=== PATIENT | female | born 1965 | race Caucasian/White ===

== ENCOUNTER → 2023-08-13 07:46 | Outpatient (REF) | payer OTHER, SELFPAY | LOC: RAD 07:46 | PROVIDERS: ATTENDING PHYSICIAN Internal Medicine Critical Care Medicine; FAMILY PHYSICIAN Family Medicine | DX: R93.89 Abnormal findings on diagnostic imaging of other specified body structures (principal); J96.01 Acute respiratory failure with hypoxia | CPT/HCPCS: 71250 ==

== ENCOUNTER 2024-01-31 13:42 | Emergency (ER) | payer OTHER, SELFPAY ==
[2024-01-31 13:49] VITALS: BP 131/97
[2024-01-31 14:19] VITALS: BMI 40.7
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
== END 2024-01-31 14:58 | disposition home or self-care (01) ==
LOC: EMR 13:42
PROVIDERS: EMERGENCY PHYSICIAN Emergency Medicine; FAMILY PHYSICIAN Family Medicine
DX: S89.92XA Unspecified injury of left lower leg, initial encounter (principal); M25.571 Pain in right ankle and joints of right foot; W19.XXXA Unspecified fall, initial encounter; I10 Essential (primary) hypertension; E11.9 Type 2 diabetes mellitus without complications
CPT/HCPCS: 99283; 73564; 73630

== ENCOUNTER → 2024-02-24 17:33 | Outpatient (REF) | payer OTHER, SELFPAY | LOC: PAVMRI 17:33 | PROVIDERS: ATTENDING PHYSICIAN Physical Medicine & Rehabilitation; FAMILY PHYSICIAN Family Medicine | DX: M75.42 Impingement syndrome of left shoulder (principal) | CPT/HCPCS: 73221 ==

== ENCOUNTER 2024-04-09 09:26 | Emergency (ER) | payer OTHER, SELFPAY ==
[2024-04-09 09:27] VITALS: BP 136/76
[2024-04-09] MEDS: TYLENOL 650 MG PO (10:30)
--- NOTE | 2024-04-09 11:33 | ED.GENMED ---
History of Present Illness
General
Chief Complaint: Musculo-Skeletal Complaint
Source: patient and family ( at bedside)
Exam Limitations: none
Time Seen by Provider: 04/09/24 09:37
Nursing documentation reviewed up to this point in time: agreed with
History of Present Illness
History of Present Illness:
59-year-old female presenting with right ankle injury. Patient states she tripped walking up a curb yesterday evening hyperextending her right ankle. She did not hit her head or sustain any other injuries during the fall. Last night�she did apply
ice and elevate her right ankle. However�this morning pain persisted and she was been unable to weight-bear due to pain. Pain is localized in her right ankle and right foot.
Patient does have a colonoscopy scheduled for Friday and has been told to avoid NSAIDs.
Past History
Past History
ED Past Medical History: HTN and NIDDM
ED Past Surgical History: , Gynecological, Orthopedic and Tonsilectomy
Social History
Tobacco: Non-smoker
Alcohol: None
Personal:
Living: with family
Employment: Not employed
Review of Systems
Review of Systems
Allergies reviewed?: Yes
All Other Systems: ROS reviewed and negative except as documented in HPI and ROS
Phy Exam
Physical Exam
Physical Exam:
Vitals: Patient's vital signs are stable. Afebrile
General: Patient is well appearing, no acute distress
Skin: Warm and dry, no rashes or lesions
Head: Normocephalic, atraumatic
Throat: Protecting airway
Neck: Normal ROM, no cervical spine tenderness
Cardiac: Regular rate
Pulm: No apparent respiratory distress
Abdomen: Nondistended
Extremities: Mild edema to dorsal foot with somewhat diffuse tenderness of right ankle surrounding lateral/medial malleoli. Tenderness noted just anterior/posterior to right lateral malleoli and dorsal foot. No tenderness of midfoot. No
tenderness at base of fifth metatarsal or calcaneus. No tenderness at head of right fibula. Right Achilles intact. Right DP pulses palpable. Sensation fully intact. Right knee atraumatic and nontender with full range of motion.
Neuro: Grossly intact
Psychiatric: Normal affect.
Course
Orders/Labs/Results
Orders:
Orders
04/09/24 09:34
Ankle, Right 3 view CR [CR Ankle - Right Min 3 Views *] Urgent
Comment:
Reason For Exam: pain after falling yesterday
CR Foot - Right Min 3 Views Urgent
Comment:
Reason For Exam: tripped and twisted foot and ankle yesterday
04/09/24 10:15
Acetaminophen [Tylenol] 650 mg PO NOW STA
04/09/24 10:38
Air Splint Right-Treatment ONCE
Vital Signs
Initial and Last Documented VS:
Initial Vital Signs
Temp Pulse BP Pulse Ox
98.0 F 55 136/76 99
04/09/24 09:27 04/09/24 09:27 04/09/24 09:27 04/09/24 09:27
Last Documented Vital Signs
Temp Pulse BP Pulse Ox
98.0 F 55 136/76 99
04/09/24 09:27 04/09/24 09:27 04/09/24 09:27 04/09/24 09:27
MDM/Problems Addressed
Differential Diagnosis Includes:
Not limited to: Ankle sprain, ankle fracture, foot, foot fracture, Achilles tendon injury, etc.
MDM/Problems Addressed:
59-year-old female presenting with mechanical right ankle injury. Unable to weight-bear due to pain. Patient does have history of ankle fracture with surgical screws placed many years ago. Denies any other associated injuries. Vital stable.
Exam as above. X-ray of right foot and ankle obtained without any acute fracture or dislocation. Suspect likely ankle sprain. There was a possible mention of hardware loosening noted on x-ray for which patient will follow-up with her orthopedic
surgeon, Dr. Herbert. Offered walking boot versus Aircast with patient. Patient prefers Aircast. Patient declines crutches and states will use a walker/wheelchair at home that she owns. Discussed RICE, follow-up with Ortho. Patient comfortable
with plan. All questions answered. Case discussed with attending physician.
Chronic conditions affecting care:
N/A
Acute Exacerbation and/or Progression of Chronic Illness:
N/A
*Radiology
Radiology exam reviewed: preliminary read by ED provider and radiology read reviewed (No acute fracture)
*Pulse Oximetry
Patient hypoxic: no
*EKG
Interpreted by ED Provider?: NA
*Psychology Department Chair Interpretation
Rate: Psychology Department Chair- N/A
*Critical Care Note
Total Time (30-74mins, 75-104mins- exclusive of procedures): Not Applicable
ED Attending Note
-
Portions of this chart may have been created with voice recognition software.� Occasional wrong word or��sound alike� substitutions may have occurred due to the inherent limitations of voice recognition software.
Discharge Plan
Departure
Patient Disposition: Home (Routine Discharge)
Date of Disposition: 04/09/24
Time of Disposition: 10:38
Patient with high blood pressure during this ER visit?: No
Discharge Problem:
Injury of ankle, right
Instructions: Ankle Sprain ED
Prescriptions:
No Action
dextromethorphan-guaifenesin 10-100 mg/5 mL Syrup
30 ml PO BIDPRN PRN (Reason: cough)
acetaminophen [Tylenol Extra Strength] 500 mg Tablet
1,000 mg PO DAILYPRN PRN (Reason: mild pain)
hydrocortisone acetate 25 mg Suppository
25 mg [place] HS Qty: 24 0RF
metformin 500 mg Tablet
500 mg PO BID@0800,1700 Qty: 120 0RF
Jardiance 25 mg Tablet
25 mg PO DAILY Qty: 30 0RF
polyethylene glycol 3350 [HealthyLax] 17 gram Powder In Packet
17 g PO DAILY Qty: 0 0RF
guaifenesin 600 mg Tablet Extended Release 12hr
600 mg PO Q12 Qty: 0 0RF
amlodipine 5 mg Tablet
5 mg PO DAILY Qty: 60 0RF
prednisone 10 mg tablet
10 mg PO DIRECTED Qty: 30 0RF
Rx Instructions:
40 mg X3days,[id number]
insulin glargine [Lantus Solostar U-100 Insulin] 100 unit/mL (3 mL) insulin pen
15 unit SC QPM Qty: 15 0RF
(DME) pen needle, diabetic [Microdot Insulin Pen Needle] 31 gauge x 1/4' needle
See Rx Instructions .Route Qty: 100 0RF
Rx Instructions:
As directed
(DME) Contour Next Test Strips Strip
Qty: 200 0RF
Rx Instructions:
Test before each meal and HS As Directed
E11.65
(DME) lancets [Color Lancets] 21 gauge Misc
Qty: 200 0RF
Rx Instructions:
Test before each meal and HS As Directed
E11.65
insulin lispro [Humalog KwikPen Insulin] 100 unit/mL insulin pen
6 unit SC AC Qty: 15 0RF
Referrals:
Amanda Rosales MD [Family Provider] -
Chiara Herbert I., DO [Active] - Call in 1-3 days for appt
Activity Restrictions/Additional Instructions:
RETURN TO THE EMERGENCY DEPARTMENT WITH ANY NUMBNESS/TINGLING IN RIGHT LEG/FOOT, INTRACTABLE PAIN, SIGNIFICANT SWELLING OR BRUISING OF RIGHT ANKLE/FOOT, OR ANY OTHER CONCERNS
-As discussed�your imaging did not show any evidence of acute fracture today. It is possible that you have a foot/ankle sprain. You should continue to rest, ice, elevate right foot/ankle as often as possible. You can take Tylenol as needed for
pain.
-You should remain nonweightbearing for the next few days until tolerated.
-As discussed�there may be some slight loosening of your hardware found on the x-ray today. You should follow-up with orthopedics for further evaluation/management.
Monitor your symptoms closely and return to the emergency department with any acute worsening/new symptoms
Interventions
Interventions:
*Risk Screen - Suicide Last Done: 04/09/24 09:42
*General Assessment Last Done: 04/09/24 09:57
*Neglect/Abuse Screening Last Done: 04/09/24 09:42
ED- Fall Risk Assessment Last Done: 04/09/24 11:00
*ED COVID-19 Vaccine History Last Done: 04/09/24 09:57
*Nursing Disposition Last Done: 04/09/24 11:00
ED-Musculoskeletal Assessment Last Done: 04/09/24 09:57
Discharge Date and Time
Discharge Date/Time: 04/09/24 11:00
Print Language: CAMEROONIAN
== END 2024-04-09 11:00 | disposition home or self-care (01) ==
LOC: EMR 09:26
PROVIDERS: EMERGENCY PHYSICIAN Emergency Medicine; FAMILY PHYSICIAN Family Medicine
DX: S99.911A Unspecified injury of right ankle, initial encounter (principal); R60.0 Localized edema; W10.1XXA Fall (on)(from) sidewalk curb, initial encounter; I10 Essential (primary) hypertension; E11.9 Type 2 diabetes mellitus without complications; Z88.0 Allergy status to penicillin
CPT/HCPCS: 99283; 29515; 73610; 73630

== ENCOUNTER 2024-04-12 06:31 | Day surgery (SDC) | payer OTHER, SELFPAY ==
[2024-04-12 08:50] VITALS: BMI 41.6
[2024-04-12 08:55] VITALS: BP 132/75
[2024-04-12 09:04] LABS: Glucose - Point of Care 101 mg/dl (70-99)
[2024-04-12 11:01] VITALS: BP 127/74
[2024-04-12 11:08] LABS: Glucose - Point of Care 99 mg/dl (70-99)
[2024-04-12 11:16] VITALS: BP 112/75
[2024-04-12 11:21] VITALS: BP 120/70
== END 2024-04-12 11:31 | disposition home or self-care (01) ==
LOC: SDS 06:31
PROVIDERS: ATTENDING PHYSICIAN Internal Medicine Gastroenterology
DX: Z12.11 Encounter for screening for malignant neoplasm of colon (principal); D12.2 Benign neoplasm of ascending colon; D12.3 Benign neoplasm of transverse colon; K57.30 Diverticulosis of large intestine without perforation or abscess without bleeding
CPT/HCPCS: 45385; 45380; 45381; 88305; 82962

== ENCOUNTER → 2024-04-15 08:50 | Outpatient (REF) | payer OTHER, SELFPAY | LOC: RAD 08:50 | PROVIDERS: FAMILY PHYSICIAN Family Medicine | DX: M75.101 Unspecified rotator cuff tear or rupture of right shoulder, not specified as traumatic (principal) | CPT/HCPCS: 73030 ==

== ENCOUNTER → 2024-05-27 11:15 | Outpatient (REF) | payer OTHER, SELFPAY | LOC: RAD 11:15 | PROVIDERS: ATTENDING PHYSICIAN Internal Medicine; FAMILY PHYSICIAN Family Medicine | DX: M54.59 Other low back pain (principal) | CPT/HCPCS: 72110 ==

== ENCOUNTER 2024-06-26 09:19 | Emergency (ER) | payer BC, SELFPAY ==
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
--- NOTE | 2024-06-26 11:34 | ED.GENMED ---
History of Present Illness
General
Chief Complaint: Back Pain
Source: patient
Exam Limitations: none
Time Seen by Provider: 06/26/24 11:34
Nursing documentation reviewed up to this point in time: agreed with
History of Present Illness
History of Present Illness:
Patient is a 59 old female who presents to the ER complaining of left lower back/buttock pain . She reports she woke up with pain yesterday however later in the afternoon it got progressively worse she denies any injury. She denies any loss of
bowel bladder denies any radiation. She reports it is worse with movement feels better lying on her left side. She only took a Tylenol at home without relief. Denies any bowel or bladder incontinence or lower weakness.
Past History
Past History
ED Past Medical History: HTN and NIDDM
ED Past Surgical History: , Gynecological, Orthopedic and Tonsilectomy
Social History
Tobacco: Non-smoker
Alcohol: None
Personal:
Living: with family
Employment: Not employed
Review of Systems
Review of Systems
Allergies reviewed?: Yes
All Other Systems: ROS reviewed and negative except as documented in HPI and ROS
Constitutional: Reports no symptoms; Denies fever, fatigue or chills
Respiratory: Reports no symptoms
Cardiac: Reports no symptoms
ABD/GI: Reports no symptoms
: Reports no symptoms; Denies incontinence
Musculoskeletal: Reports back pain
Skin: Reports no symptoms
Neurological: Reports no symptoms
Psychiatric: Reports no symptoms
Phy Exam
General Physical Exam
General Presentation: no apparent distress
General age: appears stated age
General Skin: warm and dry
General Habitus: normal
General Mental: alert
General Hydration: appears well hydrated
Neurological Exam
Neurological Exam: alert, oriented x3 and other (neg straight leg raise b/l ; nml dorsiflexion plantarflexion)
Musculoskeletal Exam
Musculoskeletal Exam: other (Normal inspection to backend python developer to left lower lateral lumbar back/buttocks no CVA tenderness full strength lower extremities strong distal pulses bilateral lower extremities)
Skin Exam
Skin Exam: normal color and warm/dry
Psychiatric Exam
Psychiatric Exam: normal mood/affect
Course
Orders/Labs/Results
Orders:
Orders
06/26/24 11:35
Vital Signs- Treatment ONCE
Frequency: Once
06/26/24 11:42
Acetaminophen [Tylenol] 1,000 mg PO NOW STA
Ketorolac [Toradol] 30 mg IM NOW STA
Lidocaine [Lidocaine 4% Patch] 1 patch TOPICAL NOW STA
Apply Lidocaine patch(s) to:: left lower back/buttock
diazePAM [Valium Injection] 5 mg IM NOW STA
Lumbar Spine Complete, 4 View [CR Lumbar Spine Comp Min 4 Vw*] Urgent
Comment:
Reason For Exam: left lower back/buttock pain
Vital Signs
Initial and Last Documented VS:
Initial Vital Signs
Temp Pulse Resp Pulse Ox
98.4 F 84 16 98
06/26/24 09:24 06/26/24 09:24 06/26/24 09:24 06/26/24 09:24
Last Documented Vital Signs
Temp Pulse Resp BP Pulse Ox
98.4 F 84 16 118/73 98
06/26/24 09:24 06/26/24 09:24 06/26/24 09:24 06/26/24 14:01 06/26/24 09:24
MDM/Problems Addressed
Differential Diagnosis Includes:
not limited to: muscle spasm/back pain
MDM/Problems Addressed:
Symptoms are consistent muscular back/buttock pain. Patient no acute distress stable for discharge home. Will DC with Flexeril, [id number] ibuprofen lidocaine patch and Tylenol as needed close outpatient PCP patient with no neurological
deficits or complaints
*Radiology
Radiology exam reviewed: radiology read reviewed
*Pulse Oximetry
Patient hypoxic: no
*Critical Care Note
Total Time (30-74mins, 75-104mins- exclusive of procedures): Not Applicable
ED Attending Note
-
Portions of this chart may have been created with voice recognition software.� Occasional wrong word or��sound alike� substitutions may have occurred due to the inherent limitations of voice recognition software.
Discharge Plan
Departure
Patient Disposition: Home (Routine Discharge)
Date of Disposition: 06/26/24
Time of Disposition: 13:39
Patient with high blood pressure during this ER visit?: No
Discharge Problem:
Low back pain
Instructions: Low Back Pain (DC)
Prescriptions:
New
cyclobenzaprine 10 mg tablet
10 mg PO TID PRN (Reason: pain ) Qty: 10 0RF
lidocaine 5 % adhesive patch,medicated
1 patch topical DAILY Qty: 15 0RF
Rx Instructions:
remove after 12 hrs
No Action
acetaminophen [Tylenol Extra Strength] 500 mg Tablet
1,000 mg PO DAILYPRN PRN (Reason: mild pain)
metformin 500 mg Tablet
500 mg PO BID@0800,1700 Qty: 120 0RF
Jardiance 25 mg Tablet
25 mg PO DAILY Qty: 30 0RF
amlodipine 5 mg Tablet
5 mg PO DAILY Qty: 60 0RF
insulin glargine [Lantus Solostar U-100 Insulin] 100 unit/mL (3 mL) insulin pen
15 unit SC QPM Qty: 15 0RF
(DME) pen needle, diabetic [Microdot Insulin Pen Needle] 31 gauge x 1/4' needle
See Rx Instructions .Route Qty: 100 0RF
Rx Instructions:
As directed
(DME) Contour Next Test Strips Strip
Qty: 200 0RF
Rx Instructions:
Test before each meal and HS As Directed
E11.65
(DME) lancets [Color Lancets] 21 gauge Misc
Qty: 200 0RF
Rx Instructions:
Test before each meal and HS As Directed
E11.65
simethicone 125 mg Tablet,Chewable
250 mg PO DIRECTED
Sutab 1.479-0.188- 0.225 gram Tablet
PO DIRECTED
Referrals:
Amanda Rosales MD [Family Provider] -
Activity Restrictions/Additional Instructions:
As discussed you may take ibuprofen every 8 hours with food and alternate with Tylenol. In addition a prescription for muscle laxer was sent to your pharmacy take as directed up to every 8 hours as needed for muscle spasm muscle pain.
This will cause drowsiness no driving or drink alcohol with taking this medication. In addition a prescription for lidocaine patch was sent to your pharmacy
Take as directed
Follow-up closely with your family doctor in next several days.
return if any worsening of symptoms.
Interventions
Interventions:
*Risk Screen - Suicide Last Done: 06/26/24 09:24
*General Assessment Last Done: 06/26/24 09:24
*Neglect/Abuse Screening Last Done: 06/26/24 09:24
Discharge Date and Time
Print Language: BULGARIAN
[2024-06-26] MEDS: LIDOCAINE 4% PATCH 1 PATCH TOPICAL (11:58)
[2024-06-26] MEDS: VALIUM INJECTION 5 MG IM (12:04)
[2024-06-26] MEDS: TORADOL 30 MG IM (12:04)
[2024-06-26] MEDS: TYLENOL 1000 MG PO (12:05)
[2024-06-26 14:01] VITALS: BP 118/73
== END 2024-06-26 14:45 | disposition home or self-care (01) ==
LOC: EMR 09:19
PROVIDERS: EMERGENCY PHYSICIAN Emergency Medicine; FAMILY PHYSICIAN Family Medicine
DX: M54.50 Low back pain, unspecified (principal); I10 Essential (primary) hypertension; E11.9 Type 2 diabetes mellitus without complications
CPT/HCPCS: 99283; 96372; 72110

== ENCOUNTER → 2024-07-16 08:12 | Outpatient (REF) | payer BC, SELFPAY | LOC: WDC 08:12 | PROVIDERS: ATTENDING PHYSICIAN Obstetrics & Gynecology Gynecology; FAMILY PHYSICIAN Family Medicine | DX: J96.11 Chronic respiratory failure with hypoxia (principal); R93.89 Abnormal findings on diagnostic imaging of other specified body structures; Z12.31 Encounter for screening mammogram for malignant neoplasm of breast | CPT/HCPCS: 71250; 77063; 77067 ==